=== PATIENT | female | born 1960 | race Caucasian/White ===

== ENCOUNTER → 2017-07-26 | Outpatient (CLI) | payer OTHER | LOC: BRMIMAGING 14:05 | PROVIDERS: ATTEND Family Medicine | DX: Z12.31 Encounter for screening mammogram for malignant neoplasm of breast (principal); Z80.3 Family history of malignant neoplasm of breast | CPT/HCPCS: G0202 ==

== ENCOUNTER 2018-07-25 03:18 | Emergency (ER) | payer OTHER ==
--- NOTE | 2018-07-25 03:34 | EDPHY ---
H & P Stated Complaint: Right sided chest pain Time Seen by Provider: 07/25/18 03:22 HPI/ROS: Chief Complaint: Chills, right-sided chest pain HPI: 58-year-old woman with bed about 12 30 this morning and developed chills. She then developed some pain in the right side of her chest. Worse with a deep breath or cough. At worst about a 3/10. No central chest pain. Does not have a history of similar episodes in the past. She has been having upper respiratory symptoms for the last couple of weeks. No cough. No exertional chest pain or dyspnea. Pain is described to the right side of her sternum and radiating to the right side of her chest. ROS: 10 systems were reviewed and were negative except those elements noted in the HPI. PMH: Denies Social History: No smoking, occasional alcohol, no recreational drug use Family History: No family history of coronary artery disease Physical Exam: Gen: Awake, Alert, No Distress HEENT: Nose: no rhinorrhea Eyes: PERRLA, EOMI Mouth: Moist mucosa Neck: Supple, no JVD Chest: Mild right parasternal tenderness reproducing presenting complaint, lungs clear to auscultation Heart: S1, S2 normal, no murmur Abd: Soft, non-tender, no guarding Back: no CVA tenderness, no midline tenderness Ext: no edema, non-tender Skin: no rash Neuro: CN II-XII intact, Sensation grossly intact, Strength 5/5 in bilateral upper and lower extremities - Personal History Current Tetanus/Diphtheria Vaccine: Yes Current Tetanus Diphtheria and Acellular Pertussis (TDAP): Yes - Medical/Surgical History Hx Asthma: No Hx Chronic Respiratory Disease: No Hx Diabetes: No Hx Cardiac Disease: No Hx Renal Disease: No Hx Cirrhosis: No Hx Alcoholism: No Hx HIV/AIDS: No Hx Splenectomy or Spleen Trauma: No - Social History Smoking Status: Never smoked Constitutional: Initial Vital Signs Temperature (C) 38 C 07/25/18 03:23 Heart Rate 86 07/25/18 03:23 Respiratory Rate 18 07/25/18 03:23 Blood Pressure 143/86 H 07/25/18 03:23 O2 Sat (%) 98 07/25/18 03:23 O2 Delivery Mode Room Air Allergies/Adverse Reactions: No Known Allergies Allergy (Unverified 07/30/16 13:24) Home Medications: Medication Instructions Recorded Herbals/Supplements -Info Only 07/30/16 Azithromycin [Zithromax] 250 mg PO DAILY #4 tab 07/25/18 Medical Decision Making - Diagnostics EKG Interpretation: ECG time 3:30 a.m., sinus rhythm with a rate of 82, normal axis, normal intervals, no acute ST or T-wave changes. Impression: Normal ECG. Imaging Results: Chest x-ray shows a right lower lobe infiltrate per my interpretation ED Course/Re-evaluation: 58-year-old with right-sided chest pain. She has a white count. Troponin is negative. ECG is negative. D-dimer is normal She has an infiltrate on chest x- ray. She has subjective chills. Findings consistent with pneumonia. Will start her on azithromycin. Follow up with primary care. - Data Points Laboratory Results: Laboratory Results 07/25/18 03:38 07/25/18 03:38 07/25/18 07/25/18 07/25/18 03:38 03:38 03:38 WBC 14.15 10^3/uL H 10^3/uL (3.80-9.50) RBC 3.68 10^6/uL L 10^6/uL (4.18-5.33) Hgb 12.8 g/dL g/dL (12.6-16.3) Hct 36.8 % L % (38.0-47.0) MCV 100.0 fL H fL (81.5-99.8) MCH 34.8 pg H pg (27.9-34.1) MCHC 34.8 g/dL g/dL (32.4-36.7) RDW 12.2 % % (11.5-15.2) Plt Count 291 10^3/uL 10^3/uL (150-400) MPV 9.1 fL fL (8.7-11.7) Neut % (Auto) Pending Lymph % (Auto) Pending Hemphill % (Auto) Pending Eos % (Auto) Pending Baso % (Auto) Pending Nucleat RBC Rel Count Pending Absolute Neuts (auto) Pending Absolute Lymphs (auto) Pending Absolute Monos (auto) Pending Absolute Eos (auto) Pending Absolute Basos (auto) Pending Absolute Nucleated RBC Pending Immature Gran % Pending Immature Gran # Pending Platelet Estimate Pending D-Dimer 0.38 ug/mLFEU ug/mLFEU (0.00-0.50) Sodium 141 mEq/L mEq/L (135-145) Potassium 3.6 mEq/L mEq/L (3.3-5.0) Chloride 108 mEq/L mEq/L (97-110) Carbon Dioxide 20 mEq/l L mEq/l (22-31) Anion Gap 13 mEq/L mEq/L (6-14) BUN 10 mg/dL mg/dL (7-23) Creatinine 0.6 mg/dL mg/dL (0.6-1.0) Estimated GFR > 60 Glucose 102 mg/dL H mg/dL (70-100) Calcium 9.4 mg/dL mg/dL (8.5-10.4) Departure - Departure Disposition: Home, Routine, Self-Care Clinical Impression: Pneumonia Condition: Good Instructions: Pneumonia (ED) Additional Instructions: Please take her full course of antibiotics. Follow up with her primary care physician in 2-3 days for further evaluation. Return to the emergency department for increasing cough, shortness of breath, uncontrolled fevers, chest pain, or any other concerns. Referrals: Jamison White MD [Medical Doctor] - As per Instructions Prescriptions: Azithromycin [Zithromax] 250 mg PO DAILY #4 tab
[2018-07-25 03:47] LABS: PLATELET COUNT 291 10^3/uL (150-400)
[2018-07-25] MEDS ORDERED: ACETAMINOPHEN 500 MG TAB PO ONE (03:59)
[2018-07-25] MEDS ORDERED: AZITHROMYCIN 250 MG TAB PO ONE (03:59)
[2018-07-25 04:10] VITALS: BP 154/89
--- NOTE | 2018-07-25 06:36 | CPEKG ---
Test Reason : OPEN Blood Pressure : / mmHG Vent. Rate : 082 BPM Atrial Rate : 082 BPM P-R Int : 146 ms QRS Dur : 083 ms QT Int : 393 ms P-R-T Axes : 067 038 048 degrees QTc Int : 459 ms Sinus rhythm Low voltage, precordial leads Confirmed by Keron Hester ([id number] on 07/25/2018 6:36:16 AM Referred By: Confirmed By:Keron Hester
== END 2018-07-25 04:29 | disposition home or self-care (01) ==
LOC: EDUNIT#
DX: J18.9 Pneumonia, unspecified organism (principal)
CPT/HCPCS: 84484-PO

== ENCOUNTER → 2018-08-07 | Outpatient (CLI) | payer OTHER | LOC: BRMIMAGING 14:47 | PROVIDERS: ATTEND Family Medicine | DX: Z12.31 Encounter for screening mammogram for malignant neoplasm of breast (principal) ==